=== PATIENT | male | born 1965 | race Caucasian/White ===

== ENCOUNTER → 2022-09-28 11:41 | Outpatient (CLI) | payer OTHER, SELFPAY ==
--- NOTE | ~2022-09-28 | XR_ITS ---
Lumbosacral Spine: AP and lateral views Clinical History: Pain Findings: The normal lordotic curve is maintained. The vertebral bodies and posterior elements are i ntact. The intervertebral disc spaces are preserved. There is facet joint degenerative change at L4- L5 and L5-S1. The sacroiliac joints are normally outlined. Impression: Facet joint degenerative change, as detailed above. Reviewed, dictated and finalized at location . ERIES INSPECTOR Impression: Facet joint degenerative change, as detailed above.
--- NOTE | ~2022-09-28 | XR_ITS ---
AP and lateral views of the bilateral hips Clinical history: Pain Findings: No acute fracture or dislocation is seen. Osseous alignment is anatomic. Bilateral hip and SI joint spaces are preserved. Soft tissues are unremarkable. Impression: No significant abnormality is seen. Reviewed, dictated and finalized at [facility]. TROPHYSIOLOGY SCIENTIST Impression: No significant abnormality is seen.
== END ==
PROVIDERS: PCP Internal Medicine; Visit Provider Chiropractor
DX: M25.551 Pain in right hip (principal); M25.552 Pain in left hip; M54.50 Low back pain, unspecified
CPT/HCPCS: 72100; 73521